=== PATIENT | female | born 1960 | race Caucasian/White ===

== ENCOUNTER 2021-07-18 17:00 | Emergency (ER) | payer MEDICARE ==
[~2021-07-18 17:00] MED LIST: AMITRIPTYLINE 550 MG PO; ASPIRIN CHEWABL81 MG PO; ATORVASTATIN CA10 MG PO; COUMADIN 5MG TAB5 MG PO; DIFLUCAN 100MG100 MG PO; DILAUDID; EFFEXOR XR150 MG PO; ELIQUIS2.5 MG PO; HYDROCODON-ACE1 EAC4 PO; LEVAQUIN500 MG PO; LEVAQUIN750 MG PO; LIPITOR40 MG PO; LISINOPRIL-HCT1 EAC1 PO; LOPRESSOR25 MG PO; LOVAZA1 GM PO; MEDROL 4MG DOSEP4 MG PO; METFORMIN HCL500 MG PO; NEURONTIN600 MG PO; NITROQUIK SL0.4 MG SL; NORCO 5-325 TA1 EACH PO; NORVASC5 MG PO; PERCOCET 5-3251 EACH PO; SLOW FE142 MG PO; SYNTHROID75 MCG PO; TESSALON PERLE100 M1 PO; TIZANIDINE HCL4 M1 PO; TIZANIDINE HCL4 MG PO; TRIGLIDE160 MG PO; VENTOLIN HFA IN18 GM INH
[2021-07-18] MEDS ORDERED: NORCO 5-325 TA1 EACH PO (22:10)
== END 2021-07-18 22:50 | disposition home or self-care (01) ==
LOC: FER 17:00
DX: S10.93XA Contusion of unspecified part of neck, initial encounter (principal); S20.224A Contusion of middle back wall of thorax, initial encounter; S30.0XXA Contusion of lower back and pelvis, initial encounter; W54.1XXA Struck by dog, initial encounter; Y92.009 Unspecified place in unspecified non-institutional (private) residence as the place of occurrence of the external cause
CPT/HCPCS: 72125; 72128; 72131

== ENCOUNTER 2021-08-12 15:47 | Emergency (ER) | payer MEDICARE ==
[2021-08-13 00:29] LABS: BASOPHIL 0.7 % (0-2); HCT 34.9 % (37.0-47.0); HGB 11.2 g/dl (12.5-16.0); LYMPHOCYTE 27.2 % (15-48); MCH 30.9 pg (25.0-31.0); MCHC 32.1 g/dL (32.0-36.0); MCV 96.1 fL (78.0-100.0); MONOCYTE 8.4 % (0-12); MPV 10.4 fL (6.0-9.5); NEUTROPHIL 60.3 % (41-80); NRBC 0; PLT 240 K/uL (150-400); RBC 3.63 M/uL (4.20-5.40); WBC 6.7 K/uL (4.0-10.5)
[2021-08-13 00:50] LABS: BUN/CREAT RATIO (CALC) 23.5 RATIO; CREATININE 0.98 mg/dL (0.51-0.95); POTASSIUM 4.2 mmol/L (3.5-5.1)
[2021-08-13] MEDS ORDERED: PERCOCET 5-3251 EACH PO (02:10)
== END 2021-08-13 02:34 | disposition home or self-care (01) ==
LOC: FER 15:47
PROVIDERS: Emergency Medicine Emergency Medical Services
DX: S09.90XA Unspecified injury of head, initial encounter (principal); I10 Essential (primary) hypertension; I48.91 Unspecified atrial fibrillation; Z86.73 Personal history of transient ischemic attack (TIA), and cerebral infarction without residual deficits; W19.XXXA Unspecified fall, initial encounter
CPT/HCPCS: 36415; 70450; 70486; 72125; 72128; 80048; 85025; 96372; J1100; J1170

== ENCOUNTER 2021-12-18 13:34 | Inpatient (IN) | payer MEDICARE ==
[~2021-12-18] VITALS: Ht 167.6 cm; Wt 124.0 kg
[2021-12-18 15:03] LABS: BASOPHIL 0.6 % (0-2); EOSINOPHIL 3.6 % (0-5); HCT 30.9 % (37.0-47.0); HGB 9.7 g/dl (12.5-16.0); LYMPHOCYTE 25.6 % (15-48); MCH 30.4 pg (25.0-31.0); MCHC 31.4 g/dL (32.0-36.0); MCV 96.9 fL (78.0-100.0); MONOCYTE 8.5 % (0-12); MPV 9.9 fL (6.0-9.5); NEUTROPHIL 60.9 % (41-80); NRBC 0; PLT 233 K/uL (150-400); RBC 3.19 M/uL (4.20-5.40); RDW 13.4 % (11.5-14.0); WBC 5.1 K/uL (4.0-10.5)
[2021-12-18 15:07] LABS: INR 1.04 (0.9-1.2)
[2021-12-18 15:16] LABS: ALBUMIN 4.3 g/dL (3.4-5.0); BILIRUBIN - TOTAL 0.3 mg/dL (0.2-1.0); BUN/CREAT RATIO (CALC) 17.8 RATIO; CREATININE 1.01 mg/dL (0.51-0.95); GLOBULIN (CALCULATION) 3.5 g/dL; POTASSIUM 4.5 mmol/L (3.5-5.1); TOTAL PROTEIN 7.8 g/dL (6.4-8.2)
[2021-12-18 16:24] LABS: BILIRUBIN NEGATIVE (NEGATIVE); BLOOD NEGATIVE Ery/uL (NEGATIVE); CLARITY CLEAR (CLEAR); COLOR YELLOW (YELLOW); GLUCOSE (U) NORMAL (NORMAL); LEUKOCYTES NEGATIVE Leu/uL (NEGATIVE); NITRITE NEGATIVE (NEGATIVE); PROTEIN NEGATIVE (NEGATIVE); UROBILINOGEN 0.2 mg/dL (0.2-1.0); pH 5.5 (5.0-9.0)
[2021-12-18 16:29] LABS: BACTERIA TRACE; MUCOUS TRACE
[2021-12-19] MEDS ORDERED: BUMEX1 MG PO (01:00)
[2021-12-19] MEDS ORDERED: MAGOX 400400 MG PO (01:01)
[2021-12-19] MEDS ORDERED: EFFEXOR XR150 MG PO (01:03)
[2021-12-19] MEDS ORDERED: K-TAB ER20 MEQ PO (01:04)
[2021-12-19] MEDS ORDERED: GABAPENTIN600 MG PO ×2 (01:07→01:08)
[2021-12-19 06:42] LABS: BASOPHIL 0.6 % (0-2); HCT 29.1 % (37.0-47.0); HGB 9.2 g/dl (12.5-16.0); LYMPHOCYTE 23.2 % (15-48); MCH 30.5 pg (25.0-31.0); MCHC 31.6 g/dL (32.0-36.0); MCV 96.4 fL (78.0-100.0); MONOCYTE 8.5 % (0-12); MPV 9.9 fL (6.0-9.5); NEUTROPHIL 63.1 % (41-80); NRBC 0; PLT 221 K/uL (150-400); RBC 3.02 M/uL (4.20-5.40); RDW 13.5 % (11.5-14.0); WBC 5.4 K/uL (4.0-10.5)
[2021-12-19 06:58] LABS: BUN/CREAT RATIO (CALC) 15.3 RATIO; CREATININE 0.85 mg/dL (0.51-0.95); POTASSIUM 3.8 mmol/L (3.5-5.1)
[2021-12-20 06:41] LABS: BUN/CREAT RATIO (CALC) 17.2 RATIO; CREATININE 0.93 mg/dL (0.51-0.95); POTASSIUM 3.6 mmol/L (3.5-5.1)
--- NOTE | 2021-12-20 14:09 | NUR ---
MET WITH PT. SHE IS GOING TO HAVE TO HAVE HOME O2 AND WOULD LIKE IT FROM [facility]. FAXED CLINICALS TO [facility] FOR ASSISTANCE WITH PORTABLE O2 TANK AND CONCENTRATOR TO BE DELIVERED TO THE HOME.
--- NOTE | 2021-12-20 14:10 | NUR ---
[facility]. PLEASE CALL AUGUSTINA FROM [facility] AND LET SAMANTHA KNOW PT IS DISCHARGING. [phone]. PT SIGNED CHOICE FORM AND COPY GIVEN.
[2021-12-21 06:07] LABS: BASOPHIL 0.7 % (0-2); EOSINOPHIL 4.6 % (0-5); HCT 29.8 % (37.0-47.0); HGB 9.5 g/dl (12.5-16.0); LYMPHOCYTE 26.5 % (15-48); MCH 30.4 pg (25.0-31.0); MCHC 31.9 g/dL (32.0-36.0); MCV 95.2 fL (78.0-100.0); MONOCYTE 9.7 % (0-12); MPV 9.6 fL (6.0-9.5); NEUTROPHIL 58.3 % (41-80); NRBC 0; PLT 223 K/uL (150-400); RBC 3.13 M/uL (4.20-5.40); RDW 13.6 % (11.5-14.0); WBC 4.1 K/uL (4.0-10.5)
[2021-12-21 06:25] LABS: BUN/CREAT RATIO (CALC) 16.3 RATIO; CREATININE 0.92 mg/dL (0.51-0.95); POTASSIUM 3.8 mmol/L (3.5-5.1)
== END 2021-12-21 11:18 | disposition home health service (06) | DRG 291 ==
LOC: FER 13:34 → FMS 19:28
PROVIDERS: Internal Medicine Cardiovascular Disease; Nurse Practitioner; Nurse Practitioner Family; Physician Assistant; ADMIT Internal Medicine
DX: I11.0 Hypertensive heart disease with heart failure (principal); I50.31 Acute diastolic (congestive) heart failure; I48.0 Paroxysmal atrial fibrillation; J44.9 Chronic obstructive pulmonary disease, unspecified; E11.9 Type 2 diabetes mellitus without complications; Z20.822 Contact with and (suspected) exposure to COVID-19; E78.5 Hyperlipidemia, unspecified; G47.33 Obstructive sleep apnea (adult) (pediatric); I27.29 Other secondary pulmonary hypertension; G89.29 Other chronic pain; R09.02 Hypoxemia; L53.9 Erythematous condition, unspecified; E03.9 Hypothyroidism, unspecified; I07.1 Rheumatic tricuspid insufficiency; F32.A Depression, unspecified; F43.10 Post-traumatic stress disorder, unspecified; Z86.73 Personal history of transient ischemic attack (TIA), and cerebral infarction without residual deficits; Z90.49 Acquired absence of other specified parts of digestive tract; Z79.82 Long term (current) use of aspirin; Z87.01 Personal history of pneumonia (recurrent); Z98.890 Other specified postprocedural states; Z79.899 Other long term (current) drug therapy; Z87.891 Personal history of nicotine dependence; Z99.81 Dependence on supplemental oxygen
CPT/HCPCS: 36415; 71046; 80048; 80053; 80061; 81001; 82962; 83036; 83880; 84484; 85025; 85610; 93005; 94762; J1170; J1650; U0002